=== PATIENT | male | born 1990 | race Caucasian/White ===

== ENCOUNTER 2018-06-30 09:35 | Emergency (ER) | payer SELFPAY ==
[~2018-06-30] VITALS: Ht 177.8 cm; Wt 113.4 kg
[~2018-06-30 09:35] MED LIST: ACHD5005 PO; CYCL10TA9 PO; HYDR1TAB86 PO; IBP800T PO; MEPE50TA PO; NAPR-243 PO; OXYC-12 PO
--- NOTE | 2018-06-30 11:08 | ED Integumentary General ---
General Chief Complaint: Skin/Wound Problems Stated Complaint: L ARM RASH Nursing Triage Note: AMB TO ROOM WITH RASH UNDER L ARM AND AROUND. 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 He reports that he was pulling weeds with gloves then put the glove under his armpit to pull it off. Timing/Duration: yesterday Associated Symptoms: rash Allergies and Home Medications Allergies Uncoded Allergies: BEE STINGS (Adverse Reaction, 12/16/09) Home Medications No Active Prescriptions or Reported Meds Patient Home Medication List Home Medication List Reviewed: Yes Review of Systems Review of Systems Constitutional: see HPI; No chills, No fever Skin: see HPI, rash All Other Systems Reviewed Negative Unless Noted: Yes Past Syundkc-Vhquxz-Gtvgmf Hx Past Med/Social Hx: Reviewed Nursing Past Med/Soc Hx Patient Social History Alcohol Use: Denies Use Recreational Drug Use: No Smoking Status: Never a Smoker Recent Foreign Travel: No Contact w/Someone Who Travel: No Recent Infectious Disease Expo: No Past Medical History Surgeries: Yes Orthopedic Respiratory: No Cardiac: No Neurological: No Genitourinary: No Musculoskeletal: No Endocrine: No HEENT: No Cancer: No Psychosocial: No Integumentary: No Family Medical History Reviewed Nursing Family Hx Physical Exam Vital Signs Vital Signs - First Documented 06/30/18 10:00 Temp 97.6 Pulse 88 Resp 18 B/P (MAP) 152/65 (94) Pulse Ox 99 O2 Delivery Room Air Capillary Refill : Less Than 3 Seconds General Appearance: WD/WN, no apparent distress Cardiovascular: normal peripheral pulses, regular rate, rhythm, no edema, no gallop, no JVD, no murmur Respiratory: chest non-tender, lungs clear, normal breath sounds, no respiratory distress, no accessory muscle use Extremities: normal capillary refill Neurologic/Psychiatric: alert, normal mood/affect, oriented x 3 Skin: normal color, warm/dry, rash Skin Problem Location: upper extremities (left axilla) Skin Problem Character: rash, thickening, urticarial, vesicular Progress/Results/Core Measures Results/Orders My Orders Orders - BERNOT,KELLEY Methylprednisolone Acetate Inj (Depo-Med (06/30/18 11:15) Vital Signs/I&O 06/30/18 06/30/18 10:00 11:21 Temp 97.6 Pulse 88 88 Resp 18 18 B/P (MAP) 152/65 (94) 152/65 (94) Pulse Ox 99 99 O2 Delivery Room Air Blood Pressure Mean: 94 Departure Impression Primary Impression: Contact dermatitis due to poison sahil Disposition: HOME, SELF-CARE Condition: Stable/Unchanged Departure-Patient Inst. Decision time for Depature: 11:03 Referrals: [facility] (PCP/Family) Primary Care Physician Patient Instructions: Contact Dermatitis (DC) Add. Discharge Instructions: You may use topical Benadryl and oral Benadryl as directed by the packaging for additional itch relief. Follow-up with your primary care provider as needed. Return back to the emergency room for worsening symptoms or concerns as needed. All discharge instructions reviewed with patient and/or family. Voiced understanding. Scripts No Active Prescriptions or Reported MedKELLEY Null June 30, 2018 11:08
[2018-06-30] MEDS ORDERED: methylPREDNISolone 40 MG/ML (DEPO MEDROL) VIAL IM ONE (11:15)
[2018-06-30 11:21] VITALS: BP 152/65
== END 2018-06-30 11:21 | disposition home or self-care (01) ==
LOC: EDUNIT# 09:35 → ER 09:36
DX: L23.7 Allergic contact dermatitis due to plants, except food (principal)
CPT/HCPCS: 99284

== ENCOUNTER 2018-07-01 20:37 | Emergency (ER) | payer SELFPAY ==
[~2018-07-01] VITALS: Ht 177.8 cm; Wt 113.4 kg
--- NOTE | 2018-07-01 21:05 | ED Integumentary General ---
General Chief Complaint: Skin/Wound Problems Stated Complaint: POISON SAHIL REACTION Source: patient Exam Limitations: no limitations History of Present Illness Date Seen by Provider: July 01, 2018 Time Seen by Provider: 21:03 Initial Comments 28 year old male who presents to the emergency room with complains of poison sahil rash under left arm. He reports that he was pulling weeds with gloves then put the glove under his armpit to pull it off. He was seen yesterday for similar complains but has had little improvement after steroid injection. Associated Symptoms: rash Allergies and Home Medications Allergies Uncoded Allergies: BEE STINGS (Adverse Reaction, 12/16/09) Home Medications No Active Prescriptions or Reported Meds Patient Home Medication List Home Medication List Reviewed: Yes Review of Systems Review of Systems Constitutional: see HPI; No chills, No fever Skin: see HPI, rash All Other Systems Reviewed Negative Unless Noted: Yes Past Dvpenom-Xgrdsb-Hopdpi Hx Past Med/Social Hx: Reviewed Nursing Past Med/Soc Hx Patient Social History Recent Foreign Travel: No Contact w/Someone Who Travel: No Past Medical History Surgeries: Yes Orthopedic Respiratory: No Cardiac: No Neurological: No Genitourinary: No Musculoskeletal: No Endocrine: No HEENT: No Cancer: No Psychosocial: No Integumentary: No Family Medical History Reviewed Nursing Family Hx Physical Exam Vital Signs Vital Signs - First Documented 07/01/18 07/01/18 20:52 21:20 Temp 98.6 Pulse 100 Resp 18 B/P (MAP) 153/105 (121) Pulse Ox 100 Capillary Refill : General Appearance: WD/WN, no apparent distress Cardiovascular: normal peripheral pulses, regular rate, rhythm, no edema, no gallop, no JVD, no murmur Respiratory: chest non-tender, lungs clear, normal breath sounds, no respirato ry distress, no accessory muscle use Extremities: normal capillary refill Neurologic/Psychiatric: alert, normal mood/affect, oriented x 3 Skin: normal color, warm/dry, rash Skin Problem Location: upper extremities Skin Problem Character: rash, thickening, urticarial, vesicular Lymphatic: no adenopathy Progress/Results/Core Measures Results/Orders My Orders Orders - BERNOT,KELLEY Prednisone Tablet (Deltasone Tablet) (07/01/18 21:15) Rx-Hydrocodone/Apap 5-325 Mg (Rx-Vicodin (07/01/18 21:15) Vital Signs/I&O 07/01/18 07/01/18 20:52 21:20 Temp 98.6 98.6 Pulse 100 99 Resp 18 18 B/P (MAP) 153/105 (121) 145/99 (114) Pulse Ox 100 Departure Impression Primary Impression: Contact dermatitis due to poison sahil Disposition: HOME, SELF-CARE Condition: Stable/Unchanged Departure-Patient Inst. Decision time for Depature: 21:03 Referrals: [facility] (PCP/Family) Primary Care Physician Patient Instructions: Contact Dermatitis (DC) Add. Discharge Instructions: He may use ibuprofen and Tylenol as directed by the bottle for pain relief. Use a topical mixture of hydrocortisone cream and Benadryl cream to the affected areas. You may use Benadryl orally as needed for additional itch relief. Try to the area dry out as much as possible. Avoid tight fitting clothing or clothing that rubs on the affected areas. Follow-up with her primary care provider within 1 week for recheck. Return back to the emergency room for worsening symptoms or concerns as needed. All discharge instructions reviewed with patient and/or family. Voiced understanding. Scripts No Active Prescriptions or Reported Meds KELLEY PAINTER July 01, 2018 21:05
[2018-07-01] MEDS ORDERED: predniSONE 20 MG TAB PO ONE (21:15)
[2018-07-01] MEDS ORDERED: RX-HYDROCODONE/APAP 5/325 MG #4 TAB PK PO PRN (21:15)
[2018-07-01 21:20] VITALS: BP 145/99
== END 2018-07-01 21:21 | disposition home or self-care (01) ==
LOC: EDUNIT# 20:37 → ER 20:38
DX: L23.7 Allergic contact dermatitis due to plants, except food (principal); Z91.030 Bee allergy status; Z98.890 Other specified postprocedural states
CPT/HCPCS: 99283

== ENCOUNTER 2018-07-02 22:45 | Emergency (ER) | payer SELFPAY ==
[~2018-07-02] VITALS: Ht 177.8 cm; Wt 113.4 kg
[2018-07-02 22:49] VITALS: BP 150/76
== END 2018-07-02 23:55 | disposition left against medical advice (07) ==
LOC: EDUNIT# 22:45 → ER 22:46
DX: L23.7 Allergic contact dermatitis due to plants, except food (principal)
CPT/HCPCS: 99282

== ENCOUNTER 2019-03-29 22:50 | Emergency (ER) | payer SELFPAY ==
[~2019-03-29] VITALS: Ht 175 cm; Wt 111.9 kg
--- NOTE | 2019-03-29 23:37 | ED Cough/URI ---
General Chief Complaint: Cough/Cold/Flu Symptoms Stated Complaint: BODY ACHES,COUGH Nursing Triage Note: ear pain, bodyaches, fever, cough Sepsis Screen: Possible Severe Sepsis Risk Source: patient Exam Limitations: no limitations History of Present Illness Date Seen by Provider: Mar 29, 2019 Time Seen by Provider: 23:10 Initial Comments Here with report of fever, body aches, runny nose and cough that has been going on for the last 3 days. He thought he was tired from working but then realized that he had fevers and was ill. He has been taking Tylenol and ibuprofen and using warm showers to assist feeling better. States that he is drinking okay. Denies vomiting or diarrhea. Timing/Duration: constant, other (3 days ago) Severity/Quality: moderate, productive cough Prior Episodes/Possible Cause: no prior episodes Associated Symptoms: cough, muscle aches, nasal congestion, sore throat Allergies and Home Medications Allergies Uncoded Allergies: BEE STINGS (Adverse Reaction, 12/16/09) Home Medications No Active Prescriptions or Reported Meds Patient Home Medication List Home Medication List Reviewed: Yes Review of Systems Review of Systems Constitutional: see HPI, chills, fever EENTM: nose congestion, throat pain Respiratory: cough; No short of breath Cardiovascular: No chest pain, No palpitations Gastrointestinal: No nausea, No vomiting Genitourinary: no symptoms reported Musculoskeletal: see HPI Skin: no symptoms reported Past Ywpohta-Jocvve-Jtetoy Hx Past Med/Social Hx: Reviewed Nursing Past Med/Soc Hx Patient Social History Alcohol Use: Denies Use Recreational Drug Use: No Smoking Status: Never a Smoker 2nd Hand Smoke Exposure: No Recent Foreign Travel: No Contact w/Someone Who Travel: No Recent Infectious Disease Expo: No Recent Hopitalizations: No Physical Abuse: No Sexual Abuse: No Mistreated: No Fear: No Seasonal Allergies Seasonal Allergies: No Past Medical History Surgeries: Yes Orthopedic Respiratory: No Cardiac: No Neurological: No Genitourinary: No Gastrointestinal: No Musculoskeletal: No Endocrine: No HEENT: No Cancer: No Psychosocial: No Integumentary: No Family Medical History Reviewed Nursing Family Hx Physical Exam Vital Signs - First Documented 03/29/19 22:56 Temp 38.3 Pulse 113 Resp 18 B/P (MAP) 137/73 (94) Pulse Ox 97 O2 Delivery Room Air Capillary Refill : Less Than 3 Seconds Height: 5'10.00" Weight: 250lbs. oz. [id number]; 36.00 BMI Method:Stated General Appearance: WD/WN, no apparent distress HEENT: PERRL/EOMI, pharyngeal erythema, other (moderate bilateral nasal congestion with clear rhinorrhea and moderate erythema) Neck: full range of motion, supple Respiratory: lungs clear, normal breath sounds Cardiovascular: no murmur, tachycardia Gastrointestinal: non tender, soft Extremities: non-tender, normal inspection Neurologic/Psychiatric: alert, oriented x 3 Skin: normal color, warm/dry Progress/Results/Core Measures Suspected Sepsis Recent Fever Within 48 Hours: Yes Infection Criteria Present: Suspected New Infection New/Unexplained Altered Menta: No Sepsis Screen: Possible Severe Sepsis Risk SIRS Temperature: Pulse: 113 Respiratory Rate: 18 Blood Pressure 137 /73 Mean: 94 Results/Orders Micro Results Microbiology 03/29/19 Influenza Types A,B Antigen (GABY) - Final, Complete My Orders Orders - ULYSSES HICKS MD Influenza A And B Antigens (03/29/19 22:54) Vital Signs/I&O 03/29/19 03/29/19 22:56 22:56 Temp 38.3 Pulse 113 Resp 18 B/P (MAP) 137/73 (94) Pulse Ox 97 O2 Delivery Room Air Room Air Capillary Refill : Less Than 3 Seconds Blood Pressure Mean: 94 Progress Note : Progress Note Seen and evaluated. Influenza screen. This was positive for influenza B. Patient informed. Outside a window for Tamiflu per CDC guidelines. Discharged home with return precautions. Patient verbalize understanding instructions and agreement with plan. Departure Impression Primary Impression: Influenza B Disposition: 01 HOME, SELF-CARE Condition: Stable Departure-Patient Inst. Decision time for Depature: 23:36 Referrals: [facility] (PCP/Family) Primary Care Physician Patient Instructions: Flu, Adult (DC) Add. Discharge Instructions: All discharge instructions reviewed with patient and/or family. Voiced understanding. You may take Tylenol/acetaminophen 1000 mg every 8 hours as needed for fever or pain. You may take ibuprofen 800 mg every 8 hours as needed for fever or pain. You may use Afrin nasal spray or the generic, 12 hour relief, 2 sprays to each nostril twice daily for 3 days only and then stop. Do not use more than 3 days. Follow-up with your in a few days for recheck. Drink plenty of fluids. Return for worse pain, fever, vomiting, weakness, breathing problems or other concerns as needed. Scripts No Active Prescriptions or Reported Meds ULYSSES HICKS MD Mar 29, 2019 23:37
[2019-03-29 23:57] VITALS: BP 137/73
== END 2019-03-29 23:57 | disposition home or self-care (01) ==
LOC: EDUNIT# 22:50 → ER 22:51
DX: J10.1 Influenza due to other identified influenza virus with other respiratory manifestations (principal); Z91.030 Bee allergy status
CPT/HCPCS: 87804

== ENCOUNTER 2020-12-31 18:16 | Emergency (ER) | payer SELFPAY ==
[~2020-12-31] VITALS: Ht 177.8 cm; Wt 113.4 kg
[2020-12-31] MEDS ORDERED: ASPIRIN 81 MG CHEW (CHILDREN'S ASA) PO ONE (18:30)
[2020-12-31 18:36] LABS: BASOPHILS # (AUTO) 0.1 10^3/uL (0.0-0.1); BASOPHILS % (AUTO) 1 % (0-10); EOSINOPHILS # (AUTO) 0.1 10^3/uL (0.0-0.3); EOSINOPHILS % (AUTO) 1 % (0-10); HEMATOCRIT 49 % (40-54); HEMOGLOBIN 16.5 g/dL (13.3-17.7); LYMPHOCYTES # (AUTO) 2.8 10^3/uL (1.0-4.0); LYMPHOCYTES % (AUTO) 23 % (12-44); MEAN CORPUSCULAR HEMOGLOBIN 29 pg (25-34); MEAN CORPUSCULAR HGB CONC 34 g/dL (32-36); MEAN CORPUSCULAR VOLUME 84 fL (80-99); MEAN PLATELET VOLUME 9.7 fL (9.0-12.2); MONOCYTES # (AUTO) 1.1 10^3/uL (0.0-1.0); MONOCYTES % (AUTO) 9 % (0-12); NEUTROPHILS % (AUTO) 66 % (42-75); PLATELET COUNT 301 10^3/uL (130-400); WHITE BLOOD COUNT 12.2 10^3/uL (4.3-11.0)
[2020-12-31 18:56] LABS: ALBUMIN 4.9 GM/DL (3.2-4.5); CHLORIDE 99 MMOL/L (98-107); POTASSIUM 4.1 MMOL/L (3.6-5.0); SODIUM 137 MMOL/L (135-145)
[2020-12-31 18:57] LABS: AMYLASE 61 U/L (25-125)
[2020-12-31 18:58] LABS: GLUCOSE 102 MG/DL (70-105); PROTHROMBIN TIME PATIENT 13.7 SEC (12.2-14.7); TOTAL PROTEIN 9.4 GM/DL (6.4-8.2)
[2020-12-31 18:59] LABS: CARBON DIOXIDE 25 MMOL/L (21-32)
[2020-12-31 19:00] LABS: BILIRUBIN,TOTAL 0.6 MG/DL (0.1-1.0)
[2020-12-31 19:01] LABS: ALKALINE PHOSPHATASE 70 U/L (40-136)
[2020-12-31 19:02] LABS: CREATININE SERUM 0.99 MG/DL (0.60-1.30); GFR ESTIMATED 88
[2020-12-31 19:03] LABS: BUN/CREATININE RATIO 7
[2020-12-31 19:04] LABS: MAGNESIUM 2.4 MG/DL (1.6-2.4)
[2020-12-31 19:05] LABS: ALANINE AMINOTRANSFERASE 57 U/L (0-55)
[2020-12-31 19:06] LABS: CREATINE KINASE 121 U/L (30-200); LIPASE 31 U/L (8-78)
--- NOTE | 2020-12-31 19:08 | Diagnostic Imaging Report ---
EXAM: CHEST 1 VIEW, AP/PA ONLY INDICATION: Chest pain. COMPARISON: 12/13/2009. FINDINGS: Normal heart size and central pulmonary vascularity. No focal pulmonary opacity, pleural effusion or pneumothorax. No acute osseous findings. IMPRESSION: No acute cardiopulmonary findings. Dictated by: Dictated on workstation # [id number]
[2020-12-31 19:12] LABS: CREATINE KINASE MB 0.4 NG/ML (<6.6)
[2020-12-31 19:15] LABS: BILIRUBIN,URINE NEGATIVE (NEGATIVE); CLARITY,URINE CLEAR; COLOR,URINE YELLOW; GLUCOSE, URINE (UA) NEGATIVE (NEGATIVE); KETONES,URINE NEGATIVE (NEGATIVE); LEUKOCYTE ESTERASE ,URINE NEGATIVE (NEGATIVE); NITRITE,URINE NEGATIVE (NEGATIVE); PH,URINE 5.5 (5-9); PROTEIN,URINE TRACE (NEGATIVE)
[2020-12-31] MEDS ORDERED: IOHEXOL 350 MG/ML 100 ML (OMNIPAQUE 350) VIAL IV ONE (19:15)
[2020-12-31] MEDS ORDERED: NS 100 ML (IVPB) BAG IV ONE (19:15)
[2020-12-31] MEDS ORDERED: HOLD METFORMIN - RECEIVED CONTRAST 20 ML VIAL IV SCH (19:15)
--- NOTE | 2020-12-31 19:16 | ED Chest Pain ---
General Chief Complaint: Chest Wall Stated Complaint: CHEST PAIN Nursing Triage Note: PT AMB TO RM 3 W REPORTS OF CHEST PAIN FOR A FEW DAYS THAT RADIATES TO HIS RIGHT SIDE AND TO HIS BACK. PT WAS EVALUATED AT [facility] TODAY AND HAS GB US SCHEDULED FOR WEDNESDAY. PT A&OX4. Source: patient History of Present Illness Date Seen by Provider: Dec 31, 2020 Time Seen by Provider: 18:19 Initial Comments PT ARRIVES VIA POV FROM HOME C/O "CHEST PAIN" FOR A FEW DAYS--POINTS TO EPIGASTRIC AREA AREA OF PAIN, THAT IS ALSO IN RIGHT UPPER QUADRANT AND INTO BACK NO NAUSEA/VOMITING/DIARRHEA NO FEVER NO SHORTNESS OF BREATH NO COUGH NO URINARY SYMPTOMS HAS HAD SAME SYMPTOMS OFF AND ON FOR THE LAST YEAR SAW DR. ALEXANDRA TODAY AT [facility] FOR THIS PROBLEM AND WAS ADVISED THAT IT WAS POSSIBLY HIS GALLBLADDER AND HAS AN ULTRASOUND SCHEDULED FOR THIS WEDNESDAY. WAS PRESCRIBED OMEPRAZOLE TODAY PT HAS TAKEN HYDROCODONE TODAY FOR PAIN WELL--"LEFT OVER" MEDICATION FOR BACK PAIN --RAN OUT THIS AM LAST FOOD INTAKE WAS AN HOUR OR TWO AGO--MANGOS, STRAWBERRIES, JELLO FOOD MAKES PAIN WORSE NO CHRONIC ILLNESSES OR DAILY MEDICATIONS PCP: DR. ALEXANDRA, [facility] Allergies and Home Medications Allergies Uncoded Allergies: BEE STINGS (Adverse Reaction, Unknown, 12/31/20) Patient Home Medication List Home Medication List Reviewed: Yes Ondansetron (Ondansetron Odt) 4 Mg Tab.rapdis, 4 MG PO Q4H Prescribed by: PUNEET VICTOR on 12/31/201948 Tramadol HCl (Ultram) 50 Mg Tablet, 50 MG PO Q4H Prescribed by: PUNEET VICTOR on 12/31/201948 Review of Systems Review of Systems Constitutional: no symptoms reported Respiratory: No Symptoms Reported Cardiovascular: See HPI Gastrointestinal: See HPI, Abdominal Pain; Denies Nausea, Denies Vomiting Genitourinary: No Symptoms Reported Musculoskeletal: see HPI, back pain Skin: no symptoms reported Psychiatric/Neurological: No Symptoms Reported Endocrine: No Symptoms Reported Hematologic/Lymphatic: No Symptoms Reported Past Sctaydl-Tqtubt-Dsxiwg Hx Patient Social History Tobacco Use?: No Use of E-Cig and/or Vaping dev: No Substance use?: No Alcohol Use?: Yes Alcohol Frequency: Once in a while Immunizations Up To Date Influenza Vaccine Up-to-Date: No; Not Current Seasonal Allergies Seasonal Allergies: No Past Medical History Surgeries: Yes (HEMANGIOMA REMOVED FROM RIGHT THIGH) Orthopedic Respiratory: No Cardiac: No Neurological: No Genitourinary: No Gastrointestinal: No Musculoskeletal: No Endocrine: No HEENT: No Cancer: No Psychosocial: No Integumentary: No Blood Disorders: No Physical Exam Vital Signs Vital Signs - First Documented 12/31/20 18:17 Temp 36.2 Pulse 101 Resp 20 B/P (MAP) 156/91 (112) Pulse Ox 98 O2 Delivery Room Air Capillary Refill : Less Than 3 Seconds Height, Weight, BMI Height: 5'10.00" Weight: 250lbs. oz. [id number]; 35.00 BMI Method:Stated General Appearance: No Apparent Distress, WD/WN Respiratory: Chest Non Tender, Normal Breath Sounds, No Accessory Muscle Use, No Respiratory Distress Cardiovascular: Regular Rate, Rhythm, No Edema, No JVD, No Murmur, Normal Peripheral Pulses Gastrointestinal: Normal Bowel Sounds, No Organomegaly, No Pulsatile Mass, Soft, Other (NO TENDERNESS TO ABDOMEN OR FLANK OR BACK) Extremity: Normal Capillary Refill, Normal Inspection, Normal Range of Motion, Non Tender, No Calf Tenderness, No Pedal Edema Neurologic/Psychiatric: Alert, Oriented x3, No Motor/Sensory Deficits, Normal Mood/Affect, security tech II-XII Norm as Tested Skin: Normal Color, Warm/Dry; No Rash Progress/Results/Core Measures Results/Orders Lab Results Laboratory Tests Test 12/31/20 18:28 12/31/20 19:12 Range/Units White Blood Count 12.2 H 4.3-11.0 10^3/uL Red Blood Count 5.78 H 4.30-5.52 10^6/uL Hemoglobin 16.5 13.3-17.7 g/dL Hematocrit 49 40-54 % Mean Corpuscular Volume 84 80-99 fL Mean Corpuscular Hemoglobin 29 25-34 pg Mean Corpuscular Hemoglobin Concent 34 32-36 g/dL Red Cell Distribution Width 13.1 10.0-14.5 % Platelet Count 301 130-400 10^3/uL Mean Platelet Volume 9.7 9.0-12.2 fL Immature Granulocyte % (Auto) 0 % Neutrophils (%) (Auto) 66 42-75 % Lymphocytes (%) (Auto) 23 12-44 % Monocytes (%) (Auto) 9 0-12 % Eosinophils (%) (Auto) 1 0-10 % Basophils (%) (Auto) 1 0-10 % Neutrophils # (Auto) 8.0 H 1.8-7.8 10^3/uL Lymphocytes # (Auto) 2.8 1.0-4.0 10^3/uL Monocytes # (Auto) 1.1 H 0.0-1.0 10^3/uL Eosinophils # (Auto) 0.1 0.0-0.3 10^3/uL Basophils # (Auto) 0.1 0.0-0.1 10^3/uL Immature Granulocyte # (Auto) 0.0 0.0-0.1 10^3/uL Prothrombin Time 13.7 12.2-14.7 SEC INR Comment 1.0 0.8-1.4 Activated Partial Thromboplast Time 38 H 24-35 SEC D-Dimer 0.70 H 0.00-0.49 UG/ML Sodium Level 137 135-145 MMOL/L Potassium Level 4.1 3.6-5.0 MMOL/L Chloride Level 99 98-107 MMOL/L Carbon Dioxide Level 25 21-32 MMOL/L Anion Gap 13 5-14 MMOL/L Blood Urea Nitrogen 7 7-18 MG/DL Creatinine 0.99 0.60-1.30 MG/DL Estimat Glomerular Filtration Rate 88 BUN/Creatinine Ratio 7 Glucose Level 102 70-105 MG/DL Calcium Level 10.0 8.5-10.1 MG/DL Corrected Calcium 8.5-10.1 MG/DL Magnesium Level 2.4 1.6-2.4 MG/DL Total Bilirubin 0.6 0.1-1.0 MG/DL Aspartate Amino Transf (AST/SGOT) 29 5-34 U/L Alanine Aminotransferase (ALT/SGPT) 57 H 0-55 U/L Alkaline Phosphatase 70 40-136 U/L Total Creatine Kinase 121 30-200 U/L Creatine Kinase MB 0.4 <6.6 NG/ML Myoglobin 27.9 10.0-92.0 NG/ML Troponin I < 0.028 <0.028 NG/ML B-Type Natriuretic Peptide 18.6 <100.0 PG/ML Total Protein 9.4 H 6.4-8.2 GM/DL Albumin 4.9 H 3.2-4.5 GM/DL Amylase Level 61 25-125 U/L Lipase 31 8-78 U/L Serum Alcohol < 10 <10 MG/DL Urine Color YELLOW Urine Clarity CLEAR Urine pH 5.5 5-9 Urine Specific [place] >=1.030 1.016-1.022 Urine Protein TRACE H NEGATIVE Urine Glucose (UA) NEGATIVE NEGATIVE Urine Ketones NEGATIVE NEGATIVE Urine Nitrite NEGATIVE NEGATIVE Urine Bilirubin NEGATIVE NEGATIVE Urine Urobilinogen 0.2 < = 1.0 MG/DL Urine Leukocyte Esterase NEGATIVE NEGATIVE Urine RBC (Auto) NEGATIVE NEGATIVE Urine RBC NONE /HPF Urine WBC 0-2 /HPF Urine Squamous Epithelial Cells 0-2 /HPF Urine Renal Epithelial Cells NONE /HPF Urine Crystals NONE /LPF Urine Bacteria NEGATIVE /HPF Urine Casts NONE /LPF Urine Mucus MODERATE H /LPF Urine Culture Indicated NO Urine Opiates Screen POSITIVE H NEGATIVE Urine Oxycodone Screen NEGATIVE NEGATIVE Urine Methadone Screen NEGATIVE NEGATIVE Urine Propoxyphene Screen NEGATIVE NEGATIVE Urine Barbiturates Screen NEGATIVE NEGATIVE Ur Tricyclic Antidepressants Screen NEGATIVE NEGATIVE Urine Phencyclidine Screen NEGATIVE NEGATIVE Urine Amphetamines Screen NEGATIVE NEGATIVE Urine Methamphetamines Screen NEGATIVE NEGATIVE Urine Benzodiazepines Screen NEGATIVE NEGATIVE Urine Cocaine Screen NEGATIVE NEGATIVE Urine Cannabinoids Screen NEGATIVE NEGATIVE My Orders Orders - PUNEET VICTOR K DO Alcohol (12/31/20 18:21) Drug Screen Stat (Urine) (12/31/20 18:21) Ua Culture If Indicated (12/31/20 18:21) Cbc With Automated Diff (12/31/20 18:21) Magnesium (12/31/20 18:21) Chest 1 View, Ap/Pa Only (12/31/20 18:21) Ekg Tracing (12/31/20 18:21) Comprehensive Metabolic Panel (12/31/20 18:21) Myoglobin Serum (12/31/20 18:21) Protime With Inr (12/31/20 18:21) Partial Thromboplastin Time (12/31/20 18:21) O2 (12/31/20 18:21) Monitor-Rhythm Ecg Trace Only (12/31/20 18:21) Ed Iv/Invasive Line Start (12/31/20 18:21) Creatine Kinase (12/31/20 18:21) Creatine Kinase Mb (12/31/20 18:21) Lipase (12/31/20 18:21) Amylase (12/31/20 18:21) BNP (12/31/20 18:21) Fibrin Degradation Products (12/31/20 18:21) Troponin I (12/31/20 18:21) Aspirin Chewable Tablet (Baby Aspirin Ch (12/31/20 18:30) Ct Chest/Abdomen/Pelvis W (12/31/20 18:54) Iohexol Injection (Omnipaque 350 Mg/Ml 1 (12/31/20 19:15) Received Contrast (Hold Metformin- Contr (12/31/20 19:15) Ns (Ivpb) (Sodium Chloride 0.9% Ivpb Bag (12/31/20 19:15) Ketorolac Injection (Toradol Injection) (12/31/20 20:00) Rx-Tramadol Hcl (Rx-Ultram) (12/31/20 19:50) Rx-Ondansetron Po (Rx-Zofran Po) (12/31/20 19:50) Medications Given in ED Current Medications Medications Dose Ordered Sig/Coreen Route Start Time Stop Time Status Last Admin Dose Admin Aspirin 324 mg ONCE ONCE PO 12/31/20 18:30 12/31/20 18:31 DC 12/31/20 19:08 324 MG Iohexol 100 ml ONCE ONCE IV 12/31/20 19:15 12/31/20 19:16 DC 12/31/20 19:15 100 ML Ketorolac Tromethamine 30 mg ONCE ONCE IVP 12/31/20 20:00 12/31/20 20:01 DC 12/31/20 20:09 30 MG Sodium Chloride 100 ml ONCE ONCE IV 12/31/20 19:15 12/31/20 19:16 DC 12/31/20 19:15 80 ML Vital Signs/I&O 12/31/20 12/31/20 18:17 20:17 Temp 36.2 Pulse 101 82 Resp 20 20 B/P (MAP) 156/91 (112) 161/86 Pulse Ox 98 99 O2 Delivery Room Air Room Air Blood Pressure Mean: 112 Progress Progress Note : Progress Note GIVEN TORADOL WITH RELIEF OF PAIN OFFERED ADMIT AND COULD HAVE SURGERY TOMORROW AND PT DECLINES, WOULD LIKE TO FOLLOW UP IN OFFICE WITH SURGEON AND SCHEDULE SURGERY IN THE NEAR FUTURE. Initial ECG Impression Date: Dec 31, 2020 Initial ECG Impression Time: 18:22 Initial ECG Rate: 98 Initial ECG Rhythm: Normal Sinus Diagnostic Imaging Comments CXR--PER RADIOLOGIST REPORT AT 191 FINDINGS: Normal heart size and central pulmonary vascularity. No focal pulmonary opacity, pleural effusion or pneumothorax. No acute osseous findings. IMPRESSION: No acute cardiopulmonary findings. CT CHEST/ABDOMEN/PELVIS--PER RADIOLOGIST REPORT AT 194 FINDINGS: CHEST: The lungs are clear. No pleural effusion or pneumothorax. Normal heart size. No pericardial effusion. No lymphadenopathy. No acute osseous findings. ABDOMEN AND PELVIS: Gallstone measuring 2.0 cm near the gallbladder neck. No gallbladder wall thickening or pericholecystic fluid is identified. Normal caliber common bile duct. Focal nonspecific hyperperfusion about the gallbladder fossa. The liver is otherwise unremarkable. The pancreas, spleen, adrenals, kidneys, collecting systems, bladder and appendix are negative. Mild colonic diverticulosis without evidence of active diverticulitis. No free intraperitoneal air or fluid. No lymphadenopathy. No evidence of bowel obstruction. Chronic bilateral L5 pars defects. No acute osseous findings. IMPRESSION: 1. A 2.0 cm gallstone in the neck of the gallbladder. No secondary findings of cholecystitis on CT. This could be further evaluated with ultrasound, if clinically warranted. 2. Mild colonic diverticulosis without evidence of active diverticulitis. 3. Negative chest CT. Reviewed: Reviewed by Me Departure Communication (Admissions) 2009--SPOKE WITH DR. GLASS, SURGEON, WILL SEE PT IN OFFICE THIS WEEK AND SCHEDULE SURGERY AT A FUTURE DATE Impression Primary Impression: Cholelithiasis Disposition: HOME, SELF-CARE Condition: Improved Departure-Patient Inst. Decision time for Depature: 19:45 Referrals: [facility] [place] (PCP/Family) Primary Care Physician KARY GLASS DO Patient Instructions: Gallstones ED, Gallbladder Diet Add. Discharge Instructions: CLEAR LIQUIDS--WATER, BROTH, JELLO, GATORADE CONTINUE OMEPRAZOLE DAILY FOLLOW UP WITH DR. GLASS, SURGEON, THIS WEEK FOR FURTHER CARE--CALL IN AM TO SCHEDULE APPOINTMENT All discharge instructions reviewed with patient and/or family. Voiced understanding. Scripts Tramadol HCl (Ultram) 50 Mg Tablet 50 MG PO Q4H for Pain, #20 TAB Prov: PUNEET VICTOR DO 12/31/20 Ondansetron (Ondansetron Odt) 4 Mg Tab.rapdis 4 MG PO Q4H for Nausea/Vomiting, #10 TAB Prov: PUNEET VICTOR DO 12/31/20 PUNEET VICTOR DO Dec 31, 2020 19:16
[2020-12-31 19:24] LABS: BACTERIA,URINE NEGATIVE /HPF; SQUAMOUS EPITHELIAL CELL,UR 0-2 /HPF; WBC,URINE 0-2 /HPF
[2020-12-31 19:28] LABS: BENZODIAZEPINES SCREEN URINE NEGATIVE (NEGATIVE); COCAINE SCREEN URINE NEGATIVE (NEGATIVE)
[2020-12-31 19:29] LABS: AMPHETAMINE SCREEN, URINE NEGATIVE (NEGATIVE); BARBITURATE SCREEN URINE NEGATIVE (NEGATIVE); CANNABINOID SCREEN, URINE NEGATIVE (NEGATIVE); METHADONE STAT NEGATIVE (NEGATIVE); METHAMPHETAMINE SCREEN URINE S NEGATIVE (NEGATIVE); OPIATE SCREEN URINE POSITIVE (NEGATIVE); OXYCODONE STAT NEGATIVE (NEGATIVE); PROPOXYPHENE STAT NEGATIVE (NEGATIVE); TRICYCLIC ANTIDEPRESSANTS SCRE NEGATIVE (NEGATIVE)
--- NOTE | 2020-12-31 19:38 | Diagnostic Imaging Report ---
PROCEDURE: CT chest, abdomen, and pelvis with contrast. TECHNIQUE: Multiple contiguous axial images were obtained through the chest, abdomen, and pelvis after the administration of intravenous contrast. Auto Exposure Controls were utilized during the CT exam to meet ALARA standards for radiation dose reduction. INDICATION: Chest pain. Epigastric pain. COMPARISON: Chest radiograph 12/31/2020. Pelvis radiograph 12/13/2009. FINDINGS: CHEST: The lungs are clear. No pleural effusion or pneumothorax. Normal heart size. No pericardial effusion. No lymphadenopathy. No acute osseous findings. ABDOMEN AND PELVIS: Gallstone measuring 2.0 cm near the gallbladder neck. No gallbladder wall thickening or pericholecystic fluid is identified. Normal caliber common bile duct. Focal nonspecific hyperperfusion about the gallbladder fossa. The liver is otherwise unremarkable. The pancreas, spleen, adrenals, kidneys, collecting systems, bladder and appendix are negative. Mild colonic diverticulosis without evidence of active diverticulitis. No free intraperitoneal air or fluid. No lymphadenopathy. No evidence of bowel obstruction. Chronic bilateral L5 pars defects. No acute osseous findings. IMPRESSION: 1. A 2.0 cm gallstone in the neck of the gallbladder. No secondary findings of cholecystitis on CT. This could be further evaluated with ultrasound, if clinically warranted. 2. Mild colonic diverticulosis without evidence of active diverticulitis. 3. Negative chest CT. Dictated by: Dictated on workstation # [id number]
[2020-12-31] MEDS ORDERED: TRAM-42 PO (19:49)
[2020-12-31] MEDS ORDERED: ONDA4TAB11 PO (19:49)
[2020-12-31] MEDS ORDERED: RX-ONDANSETRON 4 MG ODT (ZOFRAN) PPK #4 PO STA (19:50)
[2020-12-31] MEDS ORDERED: KETOROLAC 30 MG/ML VIAL IVP ONE (20:00)
[2020-12-31 20:17] VITALS: BP 161/86
== END 2020-12-31 20:17 | disposition home or self-care (01) ==
LOC: EDUNIT# 18:16 → ER 18:17
DX: K80.20 Calculus of gallbladder without cholecystitis without obstruction (principal)
CPT/HCPCS: 71045; 71260; 74177; 80053; 80306; 81000; 82150; 82550; 82553; 83690; 83735; 83874; 83880; 84484; 85025; 85379; 85610; 85730; 93005; 93041; 99284; G0480; 36415; 80320